=== PATIENT | female | born 2005 | race Caucasian/White ===

== ENCOUNTER 2023-10-15 03:14 | Emergency (ER) | payer OTHER, SELFPAY ==
[2023-10-15 03:16] VITALS: BP 106/69
[2023-10-15 03:40] VITALS: BP 113/63
[2023-10-15 03:54] LABS: COVID-19 Antigen Negative (Negative)
[2023-10-15 04:00] VITALS: BP 110/60
--- NOTE | 2023-10-15 04:01 | ED.GENMED ---
History of Present Illness
General
Chief Complaint: Cold/Flu/URI Symptoms
Source: patient and family
Time Seen by Provider: 10/15/23 03:42
Nursing documentation reviewed up to this point in time: agreed with
Travel History
Have you had any contact with someone who has COVID-19?: No
Do you have any symptoms of coronavirus? Fever > 100 degrees, chills, cough, shortness of breath, sore throat, loss of taste or smell, muscle aches, or headache?: No
History of Present Illness
History of Present Illness:
Pleasant 17-year-old female presents with cough and congestion that has been present for the last 2 days. She has had fever which she states was as high as 105. Denies abdominal pain. Reports no diarrhea or constipation. Took Tylenol just prior
to arrival.
Review of Systems
Review of Systems
Allergies reviewed?: Yes
All Other Systems: ROS reviewed and negative except as documented in HPI and ROS
Constitutional: Reports fever, fatigue, sleep disturbance and chills
EENT: Reports sore throat
Respiratory: Reports cough
Cardiac: Reports no symptoms
ABD/GI: Reports no symptoms
: Reports no symptoms
Musculoskeletal: Reports no symptoms
Skin: Reports no symptoms
Neurological: Reports no symptoms
Endocrine: Reports no symptoms
Hematologic/Lymphatic: Reports no symptoms
Psychiatric: Reports anxiety
Phy Exam
General Physical Exam
General Presentation: well appearing and mild distress
General age: appears stated age
General Skin: warm and dry
General Habitus: normal
General Mental: alert
General Hydration: appears well hydrated
ENT Exam
ENT Exam: EOMI, pharynx normal, neck supple and normocephalic
Eye Exam
Eye Exam: PERRL, cornea clear and conjunctiva normal
Cardiovascular Exam
Cardiovascular Exam: regular rate/rhythm, no edema, no murmur and normal peripheral pulses
Pulmonary Exam
Pulmonary Exam: lungs clear, no respiratory distress, no rales, no crackles, no rhonchi, no stridor, no wheezing and no cough
Gastrointestinal Exam
Gastrointestinal Exam: normal bowel sounds, non tender, soft, no organomegaly, no pulsatile mass and non distended
Neurological Exam
Neurological Exam: alert, oriented x3, no motor deficits and speech normal
Musculoskeletal Exam
Musculoskeletal Exam: full ROM and no edema
Skin Exam
Skin Exam: normal color, warm/dry, no rash and no petechia
Psychiatric Exam
Psychiatric Exam: normal mood/affect
Course
Orders/Labs/Results
Orders:
Orders
10/15/23 03:27
COVID-19 Antigen Urgent
Source: Nasal Swab
Influenza A+B Rapid Molecular Urgent
JACQUI Source: Nasal Swab
Specimen Description:
10/15/23 04:02
Acetaminophen [Tylenol] 1,000 mg PO NOW STA
10/15/23 04:09
Ibuprofen [Motrin] 400 mg PO NOW STA
10/15/23 04:13
CR Chest - 2 Views Urgent
Comment:
Reason For Exam: congestion
Vital Signs
Initial and Last Documented VS:
Initial Vital Signs
Temp Pulse Resp BP Pulse Ox
101.8 F H 125 22 106/69 100
10/15/23 03:16 10/15/23 03:16 10/15/23 03:16 10/15/23 03:16 10/15/23 03:16
Last Documented Vital Signs
Temp Pulse Resp BP Pulse Ox
101.2 F H 98 17 110/60 97
10/15/23 04:53 10/15/23 04:53 10/15/23 04:53 10/15/23 04:00 10/15/23 04:53
*Critical Care Note
Total Time (30-74mins, 75-104mins- exclusive of procedures): Not Applicable
ED Attending Note
-
Portions of this chart may have been created with voice recognition software.� Occasional wrong word or��sound alike� substitutions may have occurred due to the inherent limitations of voice recognition software.
Discharge Plan
Departure
Patient Disposition: Home (Routine Discharge)
Date of Disposition: 10/15/23
Time of Disposition: 04:48
Patient with high blood pressure during this ER visit?: No
Condition: Good
Discharge Problem:
Influenza
Instructions: Fever, Adult (DC), Flu, Adult ED, BLOOD PRESSURE
Prescriptions:
No Action
No Current Medications
0
Stand Alone Forms: Back to School
Activity Restrictions/Additional Instructions:
It was a pleasure meeting you and taking part in your care. We hope for your continued healing and wellness.
Please read discharge instructions in their entirety. However, they are for general education and may not describe your exact diagnosis at discharge. Information on your ER visit and medical conditions were discussed with you along with appropriate
follow up information...
If indicated, please take your medications as instructed and indicated on discharge paperwork.
Please schedule a follow up appointment as directed. Call to schedule an appointment
Please return to the emergency department with ANY change in, persisting, or worsening of symptoms. If any of your symptoms do not improve, or persist, or become more severe within 6-12 hours, please return to the emergency department for further
care.
Please return to the emergency department if you develop a headache, neck pain/stiffness, fever greater than 100.4F, chest pain, shortness of breath, persistent nausea, vomiting, slurred speech, difficulty walking, numbness/tingling, weakness, signs
of infection or any other symptoms that are worrisome to you.
If you have any questions or concerns please do not hesitate to call the Hospital at or E-mail me directly at [email or web address]
Interventions
Interventions:
*Risk Screen - Suicide Last Done: 10/15/23 03:16
*General Assessment Last Done: 10/15/23 03:16
*Neglect/Abuse Screening Last Done: 10/15/23 03:16
ED- Fall Risk Assessment Last Done: 10/15/23 03:16
*ED COVID-19 Vaccine History Last Done: 10/15/23 03:16
*Nursing Disposition Last Done: 10/15/23 04:53
ED- Pulmonary Assessment Last Done: 10/15/23 04:38
Discharge Date and Time
Discharge Date/Time: 10/15/23 05:03
[2023-10-15] MEDS: MOTRIN 400 MG PO (04:14)
== END 2023-10-15 05:03 | disposition home or self-care (01) ==
LOC: EMR 03:14
PROVIDERS: EMERGENCY PHYSICIAN Student in an Organized Health Care Education/Training Program
DX: J11.1 Influenza due to unidentified influenza virus with other respiratory manifestations (principal); Z11.52 Encounter for screening for COVID-19
CPT/HCPCS: 99284; 71046; 87502; 87811